=== PATIENT | male | born 1960 | race Caucasian/White ===

== ENCOUNTER 2017-05-14 21:00 | Emergency (ER) | payer MEDICAID ==
[~2017-05-14] VITALS: Ht 157.5 cm; Wt 109.1 kg
[~2017-05-14 21:00] MED LIST: CLON0.2T PO
[2017-05-14 21:12] LABS: GLUCOSE,POINT OF CARE 169 MG/DL (70-110)
[2017-05-14] MEDS ORDERED: RABIES IMMUNE GLOBULIN/THIMER 150 UNITS/ML 10 ML VIAL IM ONE (21:45)
[2017-05-14] MEDS ORDERED: AMOX TR/POT CLAV 875 MG/125 MG TABLET PO ONE (21:45)
[2017-05-14] MEDS ORDERED: RABIES VAC,PF CHICK-EMB CELL 2.5 UNITS/ML SYRINGE IM ONE (21:45)
[2017-05-14] MEDS ORDERED: IBUPROFEN 800 MG TABLET PO ONE (21:45)
[2017-05-14 22:41] VITALS: BP 139/73
[2017-06-30] MEDS ORDERED: METF500T4 PO (22:01)
[2017-06-30] MEDS ORDERED: TEMA15CA5 PO (22:02)
[2017-06-30] MEDS ORDERED: HALO10TA15 PO (22:02)
[2017-07-07] MEDS ORDERED: ATOR40TA28 PO (16:29)
[2017-07-07] MEDS ORDERED: HYDR25TA PO (16:29)
[2017-07-07] MEDS ORDERED: AMLO-511 PO (16:29)
[2017-07-17] MEDS ORDERED: AUD NEB (11:24)
[2017-07-17] MEDS ORDERED: APIX5TAB PO (11:24)
[2017-07-17] MEDS ORDERED: ASPI81TA39 PO (11:25)
[2017-07-17] MEDS ORDERED: ASPI-1182 PO (11:25)
[2017-07-17] MEDS ORDERED: BENZ-51 PO (11:27)
[2017-07-17] MEDS ORDERED: BUDE10.2 IH (11:28)
[2017-07-17] MEDS ORDERED: DILT240C93 PO (11:29)
[2017-07-17] MEDS ORDERED: INSLAN SQ ×2 (11:30)
[2017-07-17] MEDS ORDERED: IPRNEB IH ×2 (11:31→11:34)
[2017-07-17] MEDS ORDERED: NTP TD (11:31)
[2017-07-17] MEDS ORDERED: PRED20 PO (11:32)
[2017-07-17] MEDS ORDERED: SITA50 PO (11:32)
[2017-07-17] MEDS ORDERED: ACET-784 PO (11:33)
== END 2017-05-14 22:43 | disposition home or self-care (01) ==
LOC: EMS 21:01
DX: S61.231A Puncture wound without foreign body of left index finger without damage to nail, initial encounter (principal); I10 Essential (primary) hypertension; E78.00 Pure hypercholesterolemia, unspecified; J44.9 Chronic obstructive pulmonary disease, unspecified; F17.210 Nicotine dependence, cigarettes, uncomplicated; W54.0XXA Bitten by dog, initial encounter; Y93.89 Activity, other specified; Y92.89 Other specified places as the place of occurrence of the external cause; Y99.8 Other external cause status
CPT/HCPCS: 82962; 90375; 90471; 90675; 96372; 99284

== ENCOUNTER 2018-01-23 02:18 | Emergency (ER) | payer MEDICAID ==
[~2018-01-23] VITALS: Ht 162.6 cm; Wt 109.1 kg
[~2018-01-23 02:18] MED LIST changes: +ACET-784 PO; +APIX5TAB PO; +ASPI-1182 PO; +ATOR40TA28 PO; +BENZ-51 PO; +BUDE10.2 IH; -CLON0.2T PO; +DILT240C93 PO; +HALO10TA15 PO; +HYDR25TA PO; +INSLAN SQ; +METF-444 PO; +NTP TD; +PRED20 PO; +SITA50 PO; +TEMA15CA5 PO
[2018-01-23] MEDS ORDERED: AMLO-512 PO (02:32)
[2018-01-23 02:43] LABS: GLUCOSE,POINT OF CARE 126 MG/DL (70-110)
[2018-01-23 03:00] LABS: HEMATOCRIT 38.4 % (41-53); HEMOGLOBIN 13.4 g/dL (13.5-17.5); MEAN CORPUSCULAR HEMOGLOBIN 32.6 pg (26.0-34.0); MEAN CORPUSCULAR HGB CONC 34.8 G/dL (31.0-37.0); MEAN CORPUSCULAR VOLUME 94 fL (80-100); PLATELET COUNT (AUTO) 194 K/uL (150-450); RED BLOOD CELL COUNT(AUTO) 4.09 MIL/uL (4.50-5.90); RED CELL DISTRIBUTION WIDTH 14.9 % (11.5-14.5)
[2018-01-23 03:13] LABS: PROTHROMBIN TIME 10.1 SEC (9.4-11.6)
[2018-01-23] MEDS ORDERED: ACETAMINOPHEN 325 MG TABLET PO ONE (03:15)
[2018-01-23 03:17] LABS: BAND NEUTROPHILS % (MANUAL) 0 % (0-5)
[2018-01-23 03:18] LABS: EOSINOPHILS % (MANUAL) 42 % (1-6); LYMPHOCYTES % (MANUAL) 13 % (22-44); MONOCYTES % (MANUAL) 1 % (2-9); SEGMENTED NEUTROPHILS % 44 % (40-70)
[2018-01-23 03:20] LABS: B-TYPE NATRIURETIC PEPTIDE 207 pg/mL (0-100)
[2018-01-23 03:23] LABS: ANION GAP 8 mmol/L (8-16); CARBON DIOXIDE 24 mmol/L (22-29); CHLORIDE 94 mmol/L (98-107); CREATININE 0.83 mg/dL (0.60-1.30); GLOMERULAR FILTR. RATE CALC > 60 mL/min (>60); GLUCOSE,RANDOM 123 mg/dL (70-110); SODIUM SERUM 126 mmol/L (136-145); UREA NITROGEN, BLOOD 6 mg/dL (7-18)
[2018-01-23 03:24] LABS: ALANINE AMINOTRANSFERASE 20 U/L (12-78); ALBUMIN 2.2 g/dL (3.4-5.0); ALKALINE PHOSPHATASE 116 U/L (46-116); ASPARTATE AMINOTRANSFERASE 33 U/L (15-37); BILIRUBIN,TOTAL 0.4 mg/dL (0.1-1.0); CREATINE KINASE, TOTAL 119 U/L (39-308)
[2018-01-23 03:28] LABS: POTASSIUM 2.8 mmol/L (3.5-5.1)
[2018-01-23] MEDS ORDERED: HEPARIN SODIUM 25000 UNITS/D5W 250 ML IV PRN (03:38)
[2018-01-23 03:39] LABS: CKMB RELATIVE INDEX 8.7 % (0.0-4.0); CREATINE KINASE MB 10.4 ng/mL (0-5)
[2018-01-23] MEDS ORDERED: ASPIRIN 325 MG TABLET PO ONE (03:45)
[2018-01-23] MEDS ORDERED: HEPARIN SODIUM,PORCINE 5,000 UNITS/ML VIAL IVP ONE (03:45)
[2018-01-23] MEDS ORDERED: HEPARIN SODIUM,PORCINE 5,000 UNITS/ML VIAL IVP PRN ×2 (03:45)
[2018-01-23] MEDS ORDERED: POTASSIUM CHLORIDE 20 MEQ ER TABLET PO ONE (04:00)
[2018-01-23] MEDS ORDERED: SODIUM CHLORIDE 0.9% 1,000 ML IV ONE (04:15)
[2018-01-23 05:12] LABS: APPEARANCE,URINE CLEAR (CLEAR); BILIRUBIN,URINE NEGATIVE (NEGATIVE); GLUCOSE, URINE (UA) NEGATIVE (NEGATIVE); KETONES,URINE NEGATIVE (NEGATIVE); LEUKOCYTE ESTERASE ,URINE NEGATIVE (NEGATIVE); NITRATE,URINE NEGATIVE (NEGATIVE); OCCULT BLOOD,URINE SMALL (NEGATIVE); PROTEIN,URINE NEGATIVE (NEGATIVE); UROBILINOGEN,URINE 0.2 mg/dL (<=1.0)
[2018-01-23 05:30] LABS: RBC,URINE 0-2 /HPF (0-2); WBC,URINE None Seen /HPF (0-5)
[2018-01-23 05:31] LABS: BACTERIA,URINE None Seen /HPF (None Seen)
[2018-01-23 06:16] VITALS: BP 133/95
== END 2018-01-23 06:32 | disposition short-term general hospital (02) ==
LOC: EMS 02:19
DX: I21.4 Non-ST elevation (NSTEMI) myocardial infarction (principal); E87.1 Hypo-osmolality and hyponatremia; E87.6 Hypokalemia; I10 Essential (primary) hypertension; E78.00 Pure hypercholesterolemia, unspecified; J44.9 Chronic obstructive pulmonary disease, unspecified; J45.909 Unspecified asthma, uncomplicated; F17.210 Nicotine dependence, cigarettes, uncomplicated
CPT/HCPCS: 36415; 71045; 80053; 81001; 82550; 82553; 82962; 83880; 84484; 85025; 85610; 85730; 93005; 99291; J7030